=== PATIENT | male | born 1965 | race Caucasian/White ===

== ENCOUNTER 2021-06-25 21:17 | Emergency (ER) | payer MEDICAID, OTHER ==
[~2021-06-25] VITALS: Ht 175.3 cm; Wt 135.6 kg
[2021-06-25] MEDS ORDERED: SODIUM CHLORIDE FLUSH 10ML SYR IVF ONE (22:00)
[2021-06-25] MEDS ORDERED: ACETAMINOPHEN 500 MG TABLET PO ONE (22:00)
[2021-06-25] MEDS ORDERED: SODIUM CHLORIDE 0.9% 1,000ML IVBOLUS ONE (22:00)
[2021-06-25] MEDS ORDERED: ACETAMINOPHEN 500 MG TABLET ONE (22:11)
--- NOTE | 2021-06-25 23:02 | NUR ---
Mere - [phone] called looking for update
--- NOTE | 2021-06-25 23:32 | NUR ---
PATIENT AMBULATORY TO THE RESTROOM.
[2021-06-25] MEDS ORDERED: IBUPROFEN 800 MG TABLET ONE (23:55)
[2021-06-26] MEDS ORDERED: SODIUM CHLORIDE 0.9% 1,000ML IVBOLUS ONE
[2021-06-26] MEDS ORDERED: IBUPROFEN 800 MG TABLET PO ONE
[2021-06-26] MEDS ORDERED: DEXAMETHASONE 4 MG TABLET PO ONE (00:30)
[2021-06-26] MEDS ORDERED: DEXAMETHASONE 4 MG TABLET ONE (00:36)
[2021-06-26 00:56] VITALS: BP 157/108
--- NOTE | 2021-06-26 01:12 | NUR ---
Patient given discharge instructions and they have confirmed that they understand the instructions. Patient ambulatory with steady gait. NAD, all questions answered appropriately, denies additional needs at this time. No personal belongings left in room after discharge.
== END 2021-06-26 01:23 | disposition home or self-care (01) ==
LOC: ED 21:53
DX: U07.1 COVID-19 (principal); J12.82 Pneumonia due to coronavirus disease 2019; R06.00 Dyspnea, unspecified; R06.02 Shortness of breath; R00.0 Tachycardia, unspecified
CPT/HCPCS: 71045; 93005; 96360; 96361; 99284; J7030

== ENCOUNTER 2021-07-08 11:29 | Emergency (ER) | payer OTHER ==
[~2021-07-08] VITALS: Ht 175.3 cm; Wt 129.8 kg
--- NOTE | 2021-07-08 14:12 | NUR ---
DIRECTOR LEARNING SERVICES: PT TO ROOM FROM LOBBY
--- NOTE | 2021-07-08 14:29 | NUR ---
PT HERE FOR WORSENING SOB FROM COVID PNEUMONIA. ON SECOND ROUND OF ABX. CURRENTLY ON DAY 3 OF DOXYCYCLINE. DENIES HEALTH PROBLEMS. HAS RECEIVED VACCINE, BOTH DOSES. DRY UNPRODUCTIVE COUGH. SPEAKING FULL SENTENCES. SKIN WARM DRY AND PINK.
--- NOTE | 2021-07-08 15:01 | NUR ---
BEDSIDE REPORT RECEIVED FROM TIMI BULLARD
[2021-07-08] MEDS ORDERED: DEXAMETHASONE 4 MG/ML, 1ML IVPush ONE (15:30)
[2021-07-08] MEDS ORDERED: DEXAMETHASONE 4 MG/ML, 1ML ONE (15:44)
--- NOTE | 2021-07-08 15:57 | NUR ---
regeneron infusion started, pt tolerating well, pt vss, nadn.
[2021-07-08] MEDS ORDERED: CASIRIVIMAB 600 MG, IMDEVIMAB (REGN10987) 600 MG in SODIUM CHLORIDE 0.9% 250 ML IVPB ONE (16:00)
[2021-07-08] MEDS ORDERED: FILTER 0.22 MICRON IV ONE (16:00)
--- NOTE | 2021-07-08 16:58 | NUR ---
pt resting in bed, regeneron infusing, vss, nadn.
[2021-07-08 17:16] VITALS: BP 170/105
--- NOTE | 2021-07-08 18:25 | NUR ---
SELENA COMPLETED, VSS, WILL CONTINUE TO MONITOR FOR 1 HOUR
--- NOTE | 2021-07-08 19:12 | NUR ---
PT EDUCATED ON DC INSTRUCTIONS, VERBALIZED UNDERSTANDING. AMBULATORY TO DC DESK WITH STEADY GAIT.
== END 2021-07-08 19:14 | disposition home or self-care (01) ==
LOC: ED 11:35
DX: U07.1 COVID-19 (principal); J18.9 Pneumonia, unspecified organism; R09.02 Hypoxemia
CPT/HCPCS: 71045; 93005; 96374; 99283; J1100; M0243